=== PATIENT | male | born 1960 | race Caucasian/White ===

== ENCOUNTER → 2020-10-21 | Outpatient (CLI) | payer MEDICARE, OTHER | END | disposition home or self-care (01) | LOC: LABWHC1 17:00 | PROVIDERS: ATTEND Family Medicine | DX: Z03.818 Encounter for observation for suspected exposure to other biological agents ruled out (principal); Z20.822 Contact with and (suspected) exposure to COVID-19 | CPT/HCPCS: U0003; C9803 ==

== ENCOUNTER → 2021-01-01 | Outpatient (CLI) | payer OTHER, MEDICARE ==
[2021-01-01 14:34] LABS: HGB 13.7 gm/dL (13.0-17.5); MCH 31.4 pg (25.0-35.0); MCHC 34.2 g/dL (31.0-37.0); MCV 91.8 fL (80.0-100.0); Mean Platelet Volume 7.4; Platelet Count 230 k/uL (150-450); RBC 4.36 m/uL (4.30-5.90); RDW 13.1 % (11.5-15.5); WBC 8.4 k/uL (3.8-10.6)
[2021-01-01 14:42] LABS: Potassium 4.1 mmol/L (3.5-5.1)
== END | disposition home or self-care (01) ==
LOC: LABPAT 13:53
PROVIDERS: ATTEND Internal Medicine Interventional Cardiology
DX: Z01.812 Encounter for preprocedural laboratory examination (principal); I48.11 Longstanding persistent atrial fibrillation
CPT/HCPCS: 36415; 80051; 82565; 84520; 85027

== ENCOUNTER 2021-01-08 06:26 | Day surgery (SDC) | payer OTHER, MEDICARE ==
[2021-01-06 09:09] VITALS: BMI 43.5
[2021-01-08] MEDS ORDERED: SODIUM CHLORIDE 0.9% 1,000 ML IV SCH (06:49)
[2021-01-08 07:15] LABS: Glucose,Whole Blood 169 mg/dL (75-99)
[2021-01-08 07:18] VITALS: TEMP 99.5
[2021-01-08] MEDS ORDERED: PROPOFOL 10 MG/ML 20 ML VIAL IV ONE (07:22)
[2021-01-08 07:50] VITALS: RESP 16
[2021-01-08 09:08] VITALS: BP 119/62; PULSE 109
--- NOTE | 2021-01-08 22:18 | CE ---
CARDIAC ELECTROPHYSIOLOGY REPORT DATE OF SERVICE: 01/08/2021 PROCEDURE: Electrical cardioversion. INDICATION: Persistent atrial fibrillation in spite of pharmacological efforts. PROCEDURE NOTE: Under the influence of ultra short-acting intravenous anesthetic agent with the attendance of the anesthesiologist, patient was given a 250 joule shock with anterior and posterior patches. He remained in atrial fib and did not convert. Another shock of 300 joules was also given. The patient remained in atrial fib and therefore this is an unsuccessful electrical cardioversion. Results were discussed with the patient and . He will be discharged later on today on amiodarone and beta cyndi. I will see him in the office in about a week and we will consider other options including ablation. Discussed with the patient and . MMODL / IJN: [id number] /
== END 2021-01-08 09:05 | disposition home or self-care (01) ==
LOC: CATHCVL 06:26
PROVIDERS: ATTEND Internal Medicine Interventional Cardiology
DX: I48.19 Other persistent atrial fibrillation (principal); I10 Essential (primary) hypertension; E78.5 Hyperlipidemia, unspecified; E66.9 Obesity, unspecified; Z68.41 Body mass index [BMI] 40.0-44.9, adult; Z79.01 Long term (current) use of anticoagulants; Z79.84 Long term (current) use of oral hypoglycemic drugs; Z79.899 Other long term (current) drug therapy
CPT/HCPCS: 92960; J2704

== ENCOUNTER → 2021-01-22 | Outpatient (CLI) | payer OTHER, MEDICARE ==
[2021-01-22 14:43] LABS: HCT 43.6 % (39.6-50.0); HGB 14.2 g/dL (13.0-17.0); MCH 30.2 pg (27.0-32.0); MCHC 32.6 g/dL (32.0-37.0); MCV 92.8 fL (80.0-97.0); Mean Platelet Volume 10.2 fL (9.5-12.2); Platelet Count 278 X 10*3/uL (140-440); RDW 12.4 % (11.5-14.5); WBC 6.86 X 10*3/uL (4.50-10.00)
[2021-01-22 15:35] LABS: African American GFR (CKD) 69.7 (60.0-200.0); Anion Gap 10.2 mmol/L (4.00-12.00); BUN/Creat Ratio 23.08 Ratio (12.00-20.00); Calcium 9.8 mg/dL (8.7-10.3); Carbon Dioxide 28.8 mmol/L (21.6-31.8); Magnesium 2.2 mg/dL (1.5-2.4); Non-African American GFR(CKD) 60.1 (60.0-200.0); Potassium 4.1 mmol/L (3.5-5.5)
== END | disposition home or self-care (01) ==
LOC: LABWHC1 09:17
PROVIDERS: ATTEND Internal Medicine Interventional Cardiology
DX: I48.19 Other persistent atrial fibrillation (principal); I10 Essential (primary) hypertension
CPT/HCPCS: 36415; 80048; 83735; 85027

== ENCOUNTER → 2021-02-12 | Outpatient (CLI) | payer OTHER, MEDICARE ==
[2021-02-12 15:01] LABS: Potassium 4.4 mmol/L (3.5-5.1)
[2021-02-12 15:02] LABS: HCT 42.3 % (39.0-53.0); HGB 14.2 gm/dL (13.0-17.5); MCH 30.9 pg (25.0-35.0); MCHC 33.7 g/dL (31.0-37.0); MCV 91.8 fL (80.0-100.0); Mean Platelet Volume 7.6; Platelet Count 224 k/uL (150-450); RBC 4.61 m/uL (4.30-5.90); RDW 12.3 % (11.5-15.5); WBC 7.7 k/uL (3.8-10.6)
== END | disposition home or self-care (01) ==
LOC: LABPAT 14:12
PROVIDERS: ATTEND Internal Medicine Clinical Cardiac Electrophysiology
DX: Z01.812 Encounter for preprocedural laboratory examination (principal); I48.19 Other persistent atrial fibrillation
CPT/HCPCS: 36415; 80051; 82565; 84520; 85027

== ENCOUNTER 2021-02-24 05:57 | Day surgery (SDC) | payer OTHER, MEDICARE ==
[2021-02-19 15:57] VITALS: BMI 43.5
[~2021-02-24 05:57] MED LIST: SODIUM CHLORIDE 0.9% 1,000 ML IV SCH
[2021-02-24 06:36] LABS: Glucose,Whole Blood 127 mg/dL (75-99)
[2021-02-24] MEDS ORDERED: PROPOFOL 10 MG/ML 20 ML VIAL IV ONE (07:15)
[2021-02-24] MEDS ORDERED: PHENYLEPHRINE-0.9% NACL SYG 1,000 MCG/10 ML SYRINGE ONE (07:15)
[2021-02-24] MEDS ORDERED: MIDAZOLAM 2 MG/2 ML VIAL ONE (07:15)
[2021-02-24] MEDS ORDERED: fentaNYL (PF) 50 MCG/ML 2 ML AMP ONE (07:15)
[2021-02-24] MEDS ORDERED: PROTAMINE SULFATE 10 MG/ML 5 ML VIAL IV ONE (07:15)
[2021-02-24] MEDS ORDERED: HYDROmorphone (PF) 1 MG/ML ONE (07:15)
[2021-02-24] MEDS ORDERED: GLYCOPYRROLATE 0.2 MG/ML 2 ML VIAL ONE (07:15)
[2021-02-24] MEDS ORDERED: ROCURONIUM 10 MG/ML (5 ML VIAL) IV ONE (07:15)
[2021-02-24] MEDS ORDERED: HEPARIN SODIUM,PORCINE 10,000 UNIT/ML 1 ML VIAL ONE (07:15)
[2021-02-24] MEDS ORDERED: NEOSTIGMINE 1 MG/ML 10 ML VIAL ONE (07:15)
[2021-02-24] MEDS ORDERED: FUROSEMIDE 10 MG/ML 2 ML VIAL ONE (07:15)
[2021-02-24] MEDS ORDERED: LIDOCAINE 1% INJ 10MG/ML (20 ML MDV) ONE ×2 (07:15→07:57)
[2021-02-24] MEDS ORDERED: SUCCINYLCHOLINE CHLORIDE VIAL 200 MG/10 ML VIAL IV ONE (07:15)
[2021-02-24] MEDS ORDERED: MIDAZOLAM 2 MG/2 ML VIAL IVP ONE (07:18)
[2021-02-24] MEDS ORDERED: HEPARIN SODIUM (1,000 UNIT/ML) 1,000 UNIT in SODIUM CHLORIDE 0.9% 1,000 ML IRRIGATION ONE (07:33)
[2021-02-24] MEDS ORDERED: HEPARIN SOD,PORK IN 0.45% NACL 25,000 UNIT in 0.45% NACL 1 250ML.BAG IV ONE (07:34)
[2021-02-24] MEDS ORDERED: LIDOCAINE 1% INJ 10MG/ML (20 ML MDV) SQ ONE (08:02)
[2021-02-24] MEDS ORDERED: IOPAMIDOL-370 100ML BTL INJ ONE (09:37)
[2021-02-24] MEDS ORDERED: FUROSEMIDE 10 MG/ML 4 ML VIAL ONE (10:30)
[2021-02-24] MEDS ORDERED: SODIUM CHLORIDE 0.9% 500 ML 500 ML IV ONE ×2 (11:37)
[2021-02-24 12:24] LABS: Glucose,Whole Blood 152 mg/dL (75-99)
[2021-02-24] MEDS ORDERED: ACETAMINOPHEN TAB 325 MG TAB PO PRN (12:38)
[2021-02-24] MEDS: SODIUM CHLORIDE 0.9% 1,000 ML IV ONE ×4 (12:58→14:45)
[2021-02-24] MEDS ORDERED: ACETAMINOPHEN IV (For NPO) 1,000 MG in EMPTY BAG 1 BAG IVPB ONE (13:15)
--- NOTE | 2021-02-24 16:31 | P.HPCAR ---
History of Present Illness This is Dr. Brown dictating an H/P on this patient The patient was interviewed and examined IMPRESSION / ASSESSMENT: Persistent atrial fibrillation with RVR, septum and Failed electrical cardioversion and amiodarone Nonischemic cardio myopathy, ejection fraction 30% History of sleep apnea line history of alcohol use Hypertension Increased BMI Intolerance to amiodarone. TSH 7.3 PLAN: Proceed with AF ablation Reassessment of thyroid function after 6 weeks to see there is an improvement in his TSH since amiodarone has been discontinued HPI Patient complains of shortness of breath tiredness and fatigue. He is tachycardic at this time He denies any dizziness or chest discomfort his main complaint is shortness of breath and exertion ROS: No fever chills or rigors, no cough, phlegm or expectoration, no nausea, vomiting or diarrhea, no hematuria, dysuria, no musculoskeletal complaints, no strokes or seizures, no skin lesions. EXAMINATION: Pulse rate 120 have 130 beats a minute lying blood pressure 123/81 mmHg Heart sounds tachycardic. No murmurs or gallops Breath sounds are clear Abdomen soft Mild lower extremity edema REVIEW OF LABS, ECG & MEDICAL DATA TSH 7.3 Physical Exam Vitals: Vital Signs Temp Pulse Pulse Resp BP BP BP 02/24/21 16:20 64 16 02/24/21 15:58 64 16 02/24/21 15:20 62 18 02/24/21 15:05 66 16 02/24/21 14:50 65 16 02/24/21 14:35 62 16 02/24/21 14:20 62 16 02/24/21 14:05 61 16 02/24/21 13:50 61 18 02/24/21 13:35 60 16 02/24/21 13:20 61 16 02/24/21 13:05 59 L 16 74/46 02/24/21 12:50 58 L 16 76/48 02/24/21 12:35 59 L 16 77/48 02/24/21 12:20 59 L 16 75/47 02/24/21 12:05 58 L 18 89/53 02/24/21 11:51 58 L 16 92/53 02/24/21 11:36 98.0 F 54 L 16 126/88 02/24/21 06:49 99 F 145 H 18 123/81 BP Pulse Ox 02/24/21 16:20 94/61 97 02/24/21 15:58 99/66 97 02/24/21 15:20 96/56 97 02/24/21 15:05 96/68 99 02/24/21 14:50 92/59 98 02/24/21 14:35 95/58 100 02/24/21 14:20 90/56 98 02/24/21 14:05 87/53 96 02/24/21 13:50 85/51 95 02/24/21 13:35 84/50 95 02/24/21 13:20 95 02/24/21 13:05 93 L 02/24/21 12:50 93 L 02/24/21 12:35 95 02/24/21 12:20 95 02/24/21 12:05 98 02/24/21 11:51 97 02/24/21 11:36 94 L 02/24/21 06:49 98 Intake and Output 02/24/21 02/24/21 02/24/21 06:59 14:59 22:59 Intake Total 20 2835 Output Total 1700 200 Balance 20 1135 -200 Intake: IV 20 2835 Output: Urine 1700 200 Other: Weight 122.47 kg 122.47 kg Past Medical History Past Medical History: Atrial Fibrillation, CVA/TIA, Diabetes Mellitus, Hyperlipidemia, Hypertension, Myocardial Infarction ([place]), Sleep Apnea/CPAP/BIPAP Additional Past Medical History / Comment(s): See Dr Brown's H&P,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, "I HAVE A TINY HOLE IN MY HEART",uses cpap,glaucoma left eye Last Myocardial Infarction Date:: 2002 History of Any Multi-Drug Resistant Organisms: None Reported Past Surgical History: Orthopedic Surgery Additional Past Surgical History / Comment(s): LT HIP REPLACEMENT Past Anesthesia/Blood Transfusion Reactions: No Reported Reaction Smoking Status: Never smoker - Past Family History Mother Family Medical History: AFIB Father Family Medical History: Coronary Artery Disease (CAD) Physical Examination Vital Signs Temp Pulse Pulse Resp BP BP BP 02/24/21 16:20 64 16 02/24/21 15:58 64 16 02/24/21 15:20 62 18 02/24/21 15:05 66 16 02/24/21 14:50 65 16 02/24/21 14:35 62 16 02/24/21 14:20 62 16 02/24/21 14:05 61 16 02/24/21 13:50 61 18 02/24/21 13:35 60 16 02/24/21 13:20 61 16 02/24/21 13:05 59 L 16 74/46 02/24/21 12:50 58 L 16 76/48 02/24/21 12:35 59 L 16 77/48 02/24/21 12:20 59 L 16 75/47 02/24/21 12:05 58 L 18 89/53 02/24/21 11:51 58 L 16 92/53 02/24/21 11:36 98.0 F 54 L 16 126/88 02/24/21 06:49 99 F 145 H 18 123/81 BP Pulse Ox 02/24/21 16:20 94/61 97 02/24/21 15:58 99/66 97 02/24/21 15:20 96/56 97 02/24/21 15:05 96/68 99 02/24/21 14:50 92/59 98 02/24/21 14:35 95/58 100 02/24/21 14:20 90/56 98 02/24/21 14:05 87/53 96 02/24/21 13:50 85/51 95 02/24/21 13:35 84/50 95 02/24/21 13:20 95 02/24/21 13:05 93 L 02/24/21 12:50 93 L 02/24/21 12:35 95 02/24/21 12:20 95 02/24/21 12:05 98 02/24/21 11:51 97 02/24/21 11:36 94 L 02/24/21 06:49 98 Intake and Output 02/24/21 02/24/21 02/24/21 06:59 14:59 22:59 Intake Total 20 2835 Output Total 1700 200 Balance 20 1135 -200 Intake: IV 20 2835 Output: Urine 1700 200 Other: Weight 122.47 kg 122.47 kg Results Current Medications Generic Name Dose Route Start Last Admin Trade Name Freq PRN Reason Stop Dose Admin Acetaminophen 650 mg 02/24/21 12:38 Acetaminophen Tab 325 Mg Tab PO Q6HR PRN Mild Pain Apixaban 5 mg 02/24/21 21:00 Apixaban 5 Mg Tab PO BID ANDRY Protocol Atorvastatin Calcium 40 mg 02/25/21 09:00 Atorvastatin 40 Mg Tab PO DAILY [facility] Furosemide 40 mg 02/25/21 09:00 Furosemide 40 Mg Tab PO DAILY [facility] Lisinopril/HCTZ 1 each 02/25/21 09:00 Lisinopril-Hctz 20-25 Mg 1 Each Tab PO DAILY [facility] Metformin HCl 1,000 mg 02/26/21 21:00 Metformin 500 Mg Tab PO HS [facility] Metoprolol Succinate 150 mg 02/25/21 09:00 Metoprolol Succinate (Er) 50 Mg Tab.Er.24h PO DAILY [facility] Sodium Chloride 12 ml 02/24/21 21:00 Sodium Chloride 0.9% Flush 10 Ml Syringe IV Q12HR [facility] Timolol Maleate 1 drops 02/25/21 09:00 Timolol 0.5% Ophth Drops 5 Ml Btl LEFT EYE DAILY [facility] Intake and Output 02/24/21 02/24/21 02/24/21 06:59 14:59 22:59 Intake Total 20 2835 Output Total 1700 200 Balance 20 1135 -200 Intake: IV 20 2835 Output: Urine 1700 200 Other: Weight 122.47 kg 122.47 kg Patient Weight 02/25/21 06:59 Weight 122.47 kg
--- NOTE | 2021-02-24 16:35 | P.PRLE ---
RE: Ron Lloyd Dear Ron Deluca underwent A. fib ablation with pulmonary vein isolation and linear ablation of the left atrium He has persistent, very symptomatic atrial fibrillation with associated cardio myopathy and left ventricular ejection fraction of 30% Urine underwent successful pulmonary vein isolation and ablation of the left atrial septum He is intolerant of amiodarone and his TSH is 7.3 Amiodarone has been discontinued previously Patient be reevaluated in about 6 weeks to see if this is an effect of amiodarone He will continue ELIQUIS but is quite likely that he may need a second AF ablation with further linear ablation in the left atrium Hopefully his LV function will improve once he is in sinus rhythm I recommended complete abstinence from alcohol use Thank you for entrusting me with the care of the patient Warm regards Sincerely Oscar Brown
--- NOTE | 2021-02-24 16:40 | P.EPPROC ---
- EP Procedure Note Electrophysiology Procedure Note: PROCEDURE A. fib ablation with pulmonary vein isolation and ablation in the left atrial septum DIAGNOSIS Atrial fibrillation, symptomatic, refractory to therapy Persistent Nonischemic cardio myopathy RESULT No left atrial appendage mass seen on intracardiac echo, severe LV dysfunction on intracardiac echo Successful A. fib ablation/pulmonary vein isolation of all veins using cryo- ablation Complete entrance block in all 4 veins confirmed No evidence for phrenic nerve injury Linear ablation in the posterior septum of the left atrium along complex fractionated electrograms Esophageal deflection YES Electrical cardioversion with a synchronized shock across the chest YES PROCEDURE DETAILS Patient was brought to the EP lab in a fasting state. Written informed consent was obtained prior to the procedure. Procedure performed under general anesthesia After initial muscle relaxant use, muscle relaxants were not given thereafter in order to assess phrenic nerve during procedure. Patient prepped and draped as per protocol Full cryo-set up with standard preparation of the cryoablation tools done. Femoral Venous access obtained on the right and left groins Venous and arterial Sheaths placed. Diagnostic catheters for the high right atrium, phrenic nerve stimulation and pacing, His bundle, RV and coronary sinus placed Intracardiac echo catheter placed. Long sheath placed in the right atrium Left and right transseptal catheterization performed under intracardiac echo guidance. Intravenous heparin with aCT above 300 Later, catheter positioning and balloon positioning in the left atrium, under intracardiac echo guidance Diagnostic EP study with CS pacing and recording Transseptal catheterization performed RA pressure 21/11/12 LA pressure 39/8/22 Transseptal catheterization performed with standard sheath. The cryoablation sheath was then placed with an over the wire exchange without any acute complications. All 4 pulmonary veins were isolated in the following sequence: Left superior followed by left inferior followed by right superior followed by right inferior The cryo-ablation balloon was placed at the os of each vein 1.5 mL of IV dye was injected to confirm an occluded vein Goal during cryoablation was to achieve complete occlusion of the pulmonary ve in, achieve -30 degrees C at 30 seconds and achieve -40 degrees C at 60 seconds and a time to effect of less than 60-90 seconds, . If not the balloon was repositioned to obtain this result After completion of Cryoblation with durations from 180-240 seconds, entrance block was confirmed with the Attain circular catheter in a roving fashion around the antrum of the pulmonary veins Phrenic nerve pacing was performed from the SVC, right innominate vein area and diaphragm voltage was monitored. Diaphragmatic contractions were also monitored manually for strength of contraction. Parameter goals for each cryo freeze Complete occlusion of the appropriate vein -30 degrees C by 30 seconds -40 degrees C by 60 seconds Minimum between minus 40-55 degrees C Thaw time greater than 10 seconds Balloon visualized by intracardiac echo The esophagus was intubated. Esophageal Temperature monitoring with a CIRCA catheter formed. Esophageal deflection for hypothermia of the esophagus below 30 degrees C Left superior pulmonary vein Complete isolation, entrance block Left inferior pulmonary vein Complete isolation, entrance block Right superior pulmonary vein, during phrenic nerve pacing Complete isolation, entrance block Right inferior pulmonary vein, during phrenic nerve pacing Complete isolation, entrance block At the end of the procedure the Achieve catheter was once again used to check for entrance block Phrenic nerve stimulation was performed to confirm diaphragmatic stimulation the end of the procedure Cine fluoroscopy was performed at the very end of the procedure to confirm mo vement of both diaphragms with inspiration and expiration RF ablation catheter with appropriate sheaths was placed in the left atrium Scot mapping of the left atrium was performed Very fractionated electrograms are noted in the posterior septum after the roof And RF ablation was performed linear ablation along the posterior septum from the roof down to the right inferior pulmonary vein with mild organization of atrial fibrillation The patient's left pectoral groove is about 3.9 cm. The roof line was not made at this time Electrical cardioversion was performed to sinus rhythm At the end of the procedure the patient was extubated Heparin was reversed Venous sheaths were removed and hemostasis assured vascade venous Closure used PROCEDURES PERFORMED Diagnostic EP study CS pacing and recording Left and right transseptal catheterization 3D mapping) Intracardiac echocardiography Pulmonary vein isolation with transseptal and comprehensive EPS, [id number] Linear ablation, left atrium, +20220 Electrical cardioversion with a synchronized shock across the chest [id number]
[2021-02-24 17:09] LABS: Glucose,Whole Blood 167 mg/dL (75-99)
[2021-02-24 20:36] LABS: Glucose,Whole Blood 198 mg/dL (75-99)
[2021-02-24] MEDS: APIXABAN 5 MG TAB PO SCH (21:26)
[2021-02-25 02:48] VITALS: RESP 18
[2021-02-25 07:06] LABS: Glucose,Whole Blood 472 mg/dL (75-99)
[2021-02-25 07:07] LABS: Glucose,Whole Blood 156 mg/dL (75-99)
--- NOTE | 2021-02-25 07:59 | P.DS ---
Providers Attending physician: Oscar Brown Primary care physician: [facility] Course: Patient is resting comfortably in bed. Yesterday he had oozing from the right groin on 2 occasions. He has a very small hematoma in relation to the right groin. No hematoma in the left Right groin is mildly tender On examination his blood pressures 105/70 mmHg Yesterday he received 250 mL of IV fluids He had received IV Lasix through the procedure since he has severe LV dysfunction No JVD He looks comfortable no orthopnea no PND Heart sounds are regular Twelve-lead EKG was reviewed and shows sinus rhythm normal [place] narrow QRS and ST segment abnormalities with T-wave inversions in the precordial leads Impression Persistent symptomatic atrial fibrillation Associated severe cardio myopathy with congestive heart failure Status post pulmonary vein isolation and ablation in the left atrial septum Mild organization of atrial fibrillation Electrical cardioversion was performed at the end of the procedure Plan Hold Lasix metoprolol and lisinopril for 24-48 hours and resume thereafter Do not discontinue ELIQUIS. This was clearly explained to the patient and to his nurse today Follow-up with Dr. Plaza within one week Plan - Discharge Summary Discharge Rx Participant: No New Discharge Prescriptions: Continue Lisinopril-Hctz 20-25 mg [Zestoretic 20-25] 1 each PO DAILY allopurinoL [Zyloprim] 100 mg PO DAILY metFORMIN HCL [Glucophage] 1,000 mg PO HS Timolol 0.5% Ophth Soln [Timoptic 0.5% Ophth Soln] 1 drop LEFT EYE DAILY Atorvastatin [Lipitor] 40 mg PO DAILY Apixaban [Eliquis] 5 mg PO BID Furosemide [Lasix] 40 mg PO DAILY Metoprolol Succinate (ER) [Toprol XL] 150 mg PO DAILY Discharge Medication List Lisinopril-Hctz 20-25 mg [Zestoretic 20-25] 1 each PO DAILY 04/18/14 [History] allopurinoL [Zyloprim] 100 mg PO DAILY 04/18/14 [History] Atorvastatin [Lipitor] 40 mg PO DAILY 01/06/21 [History] Timolol 0.5% Ophth Soln [Timoptic 0.5% Ophth Soln] 1 drop LEFT EYE DAILY 01/06/21 [History] metFORMIN HCL [Glucophage] 1,000 mg PO HS 01/06/21 [History] Apixaban [Eliquis] 5 mg PO BID 02/19/21 [History] Furosemide [Lasix] 40 mg PO DAILY 02/19/21 [History] Metoprolol Succinate (ER) [Toprol XL] 150 mg PO DAILY 02/19/21 [History] Follow up Appointment(s)/Referral(s): Wilmer Plaza MD [STAFF PHYSICIAN] - 3 Days (Discharge home by 6 PM today if groin is healing well and he has no bleeding Use FemStop intermittently today) Activity/Diet/Wound Care/Special Instructions: Post EP study - Ablation instructions 1. Keep access sites dry for 2 days. 2. No heavy lifting or straining for 2 days. 3. Avoid bending the hips repeatedly for 2 days. 4. You may go up and down stairs slowly Call if the following is noted 1. Bleeding, increasing swelling or pain at the access sites. 2. Increasing chest discomfort, especially upon taking a deep breath. 3. Increasing shortness of breath, at rest or with exertion. 4. Undue cough / phlegm 5. Difficulty or pain while swallowing. 6. Pain or change in color in the extremities. 7. Fever, chills, rigors. 8. Increasing headache or neurologic symptoms. 9. Dizziness, fainting, palpitations Do not stop ELIQUIS Hold Lasix on Tuesday Hold metoprolol and lisinopril hydrochlorothiazide on Tuesday Resume all medications by Follow-up with Dr. Plaza in 4-5 days Discharge Disposition: HOME SELF-CARE
[2021-02-25] MEDS: APIXABAN 5 MG TAB PO SCH (08:15)
[2021-02-25] MEDS ORDERED: METOPROLOL SUCCINATE (ER) 50 MG TAB.ER.24H PO SCH (09:00)
[2021-02-25] MEDS ORDERED: TIMOLOL 0.5% OPHTH DROPS 5 ML BTL LEFT EYE SCH (09:00)
[2021-02-25] MEDS ORDERED: ATORVASTATIN 40 MG TAB PO SCH (09:00)
[2021-02-25] MEDS ORDERED: FUROSEMIDE 40 MG TAB PO SCH (09:00)
[2021-02-25] MEDS ORDERED: LISINOPRIL-HCTZ 20-25 MG 1 EACH TAB PO SCH (09:00)
[2021-02-25 11:51] LABS: Glucose,Whole Blood 155 mg/dL (75-99)
[2021-02-25 15:50] VITALS: BP 104/68; PULSE 75; TEMP 98.2
[2021-02-26] MEDS ORDERED: metFORMIN 500 MG TAB PO SCH (21:00)
== END 2021-02-25 17:00 | disposition home or self-care (01) ==
LOC: CATHEP 05:57 → 6NMEDSUR 11:15 → CATHEP 02-25 17:00
PROVIDERS: ATTEND Internal Medicine Clinical Cardiac Electrophysiology
DX: I48.19 Other persistent atrial fibrillation (principal); I42.8 Other cardiomyopathies; I10 Essential (primary) hypertension; Z79.899 Other long term (current) drug therapy; Z82.49 Family history of ischemic heart disease and other diseases of the circulatory system; Z79.01 Long term (current) use of anticoagulants; I25.2 Old myocardial infarction; E11.9 Type 2 diabetes mellitus without complications; E78.5 Hyperlipidemia, unspecified; I11.0 Hypertensive heart disease with heart failure; I50.9 Heart failure, unspecified; Z79.84 Long term (current) use of oral hypoglycemic drugs; Z86.73 Personal history of transient ischemic attack (TIA), and cerebral infarction without residual deficits
CPT/HCPCS: 93656; 92960; 93662; 93613; 93657; 84443; C1894 ×2; C1769 ×5; C1760; C1730 ×2; C1759; C1893; C1733; C1766; C1732; J2250; J0330; J2720; J1644 ×3; J1940; J2710; J2001; J3010; J1170; J0131; J2370; J2704; Q9967

== ENCOUNTER → 2022-02-16 | Outpatient (CLI) | payer OTHER, MEDICARE ==
--- NOTE | 2022-02-16 07:18 | MR ---
EXAMINATION TYPE: MR lumbar spine wo con DATE OF EXAM: 02/16/2022 COMPARISON: None HISTORY: Sciatica to the left CONTRAST: 0 mL intravenous Gadavist. TECHNIQUE: Multiplanar, multisequence images of the lumbar spine were acquired. FINDINGS: Cord terminates at the L1 level. There is mild wedge deformity without signal abnormality suggesting old compressions T11-T12. L5-S1: Degenerative disc changes are present. Vacuum disc phenomenon is present. There is a grade 1 s pondylolisthesis of L5 anteriorly on S1. Disc uncovering is anterior thecal sac contact. No AP spinal canal stenosis is present. Mild facet hypertrophy and ligamentum flavum laxity is present. Severe ri ght and left foraminal narrowing is present. This appears to be related to disc bulge and the foramen . L4-L5: No significant disc bulge or disc herniation. No spinal canal stenosis. No foraminal stenosi s. Facet hypertrophy with mild ligamentum flavum laxity is present. L3-L4: No significant disc bulge or disc herniation. No spinal canal stenosis. No foraminal stenosi s. Facets appear unremarkable.. L2-L3: No significant disc bulge or disc herniation. No spinal canal stenosis. No foraminal stenosi s. . L1-L2: No significant disc bulge or disc herniation. No spinal canal stenosis. No foraminal stenosi s. . T12-L1: Minimal right paracentral disc bulge may be present within the thecal sac contact. No spinal canal stenosis or neural foraminal stenosis is present. IMPRESSION: 1. Grade 1 spondylolisthesis with disc uncovering L5-S1. Vacuum disc phenomenon is present. Mild ante rior thecal sac contact is present. 2. Severe bilateral foraminal stenosis L5-S1 which appears related to disc bulging.
== END | disposition home or self-care (01) ==
LOC: RADMRIMAIN 05:52
PROVIDERS: ATTEND Family Medicine
DX: M43.16 Spondylolisthesis, lumbar region (principal); M48.061 Spinal stenosis, lumbar region without neurogenic claudication; M99.73 Connective tissue and disc stenosis of intervertebral foramina of lumbar region
CPT/HCPCS: 72148

== ENCOUNTER → 2024-09-20 | Day surgery (SDC) | payer OTHER, MEDICARE ==
[2024-09-18 14:03] VITALS: BMI 44.6
[~2024-09-20] MED LIST changes: +LIDOCAINE 1% INJ 10MG/ML (20 ML MDV) ONE; +PROPOFOL 10 MG/ML 20 ML VIAL IV ONE; -SODIUM CHLORIDE 0.9% 1,000 ML IV SCH
[2024-09-20 06:57] VITALS: TEMP 97.1
[2024-09-20] MEDS: SODIUM CHLORIDE 0.9% 500 ML 500 ML IV ONE (07:20)
[2024-09-20 07:25] LABS: Glucose,Whole Blood 106 mg/dL (70-110)
[2024-09-20] MEDS: BENZOCAINE SPRAY 1 EACH MM ONE (07:37)
--- NOTE | 2024-09-20 07:58 | P.TEE ---
Date of Procedure: 09/20/24 Description of Procedure(s): Procedure performed: 1. Transesophageal Echocardiogram. 2. Synchronized Cardioversion. Indications: Persistent symptomatic atrial flutter Consent: I have discussed the risks, benefits and alternative therapies for the above-mentioned procedure. The patient has indicated understanding and acceptance of the risks of the procedure. Signed consent was obtained and was placed in the paper chart. Moderate conscious sedation: Moderate conscious sedation was administered by an esthesia, see separate report. Procedural Steps: Timeout was performed in usual fashion. Patient's heart rate, blood pressure, oxygen saturation and ECG were monitored. After achieving appropriate moderate conscious sedation, JORGE JORGE probe was advanced without difficulty and without any immediate complications to the esophagus. JORGE study was performed with color flow doppler, pulsed wave doppler and continuous wave doppler. Agitated saline bubbles were injected to assess for any intra-atrial shunt. The probe was then removed. SYNCHRONIZED CARDIOVERSION After making sure that there is no evidence of intracardiac thrombus, pacer pads were placed and secured on patients chest and back. Synchronized cardioversion was perfromed using [150] J. [1] attempt. Sinus rhythm was confirmed with a 12 lead EKG. Patient tolerated the procedure well. Patient was transferred to the post procedure area in stable and satisfactory condition. Complications: none Blood loss: none FINDINGS Left Atrium: Moderate left atrial dilatation, no mass or thrombus. Left Atrial Appendage: No evidence of thrombus or mass seen in FRACISCO. Mildly dilated left atrial appendage. Inter atrial septum: Intact inter-atrial septum. No evidence of atrial septal defect or patent foramen ovale on color doppler. Left Ventricle: Normal global LV size and systolic function Right Atrium: Normal overall RA size Right Ventricle: Normal global RV size and systolic function Aortic Valve: Structurally normal Trileaflet, no significant calcification. No significant stenosis or regurgitation on color doppler assessment. Mitral Valve: Mild mitral regurgitation, likely functional from dilated atrium. Pulmonic Valve: Not well visualized. Tricuspid Valve: Mild tricuspid regurgitation Ascending aorta, Aortic root and Aortic arch: Mild intimal thickening. No evidence of large atheroma or bulky calcification Descending aorta: Mild intimal thickening. No evidence of large atheroma or bulky calcification Pericardial effusion CONCLUSION: Preserved global LV size and systolic function Moderate left atrial dilatation with no evidence of mass or thrombus. No thrombus or mass in left atrial appendage Mild functional mitral regurgitation Mild tricuspid regurgitation Successful synchronized cardioversion was attempted with 150 J with conversion of atrial flutter with a heart rate of 120 bpm to normal sinus rhythm. Recommendation Atrial flutter ablation Axel Meyers MD, RPVI, FACC Thank you for allowing [facility] to participate in this patient's care. Feel free to reach out in case of any followup questions.
[2024-09-20 07:59] LABS: African American GFR (CKD) >90 (>60 ml/min/1.73 sqM); Anion Gap 8 mmol/L; Blood Urea Nitrogen 25 mg/dL (9-20); Calcium 9.5 mg/dL (8.4-10.2); Carbon Dioxide 28 mmol/L (22-30); Chloride 105 mmol/L (98-107); Glucose 98 mg/dL (74-99); Non-African American GFR(CKD) >90 (>60 ml/min/1.73 sqM); Sodium 141 mmol/L (137-145)
[2024-09-20] MEDS: KETOROLAC 15 MG/ML 1 ML VIAL IVP STA (08:22)
[2024-09-20] MEDS: SODIUM CHLORIDE 0.9% 1,000 ML IV SCH (08:23)
[2024-09-20] MEDS: IV FLUID CONTINUATION 1,000 ML IV ONE (08:24)
[2024-09-20 09:24] LABS: Glucose,Whole Blood 103 mg/dL (70-110)
[2024-09-20 09:47] VITALS: RESP 18
[2024-09-20 10:00] VITALS: BP 108/69; PULSE 70
== END ==
LOC: OR 06:06
PROVIDERS: ATTEND Student in an Organized Health Care Education/Training Program
DX: I08.1 Rheumatic disorders of both mitral and tricuspid valves (principal); I48.19 Other persistent atrial fibrillation; I25.2 Old myocardial infarction; I11.0 Hypertensive heart disease with heart failure; I50.9 Heart failure, unspecified; I67.9 Cerebrovascular disease, unspecified; E78.00 Pure hypercholesterolemia, unspecified; G47.33 Obstructive sleep apnea (adult) (pediatric); E07.9 Disorder of thyroid, unspecified; E11.9 Type 2 diabetes mellitus without complications; Z82.49 Family history of ischemic heart disease and other diseases of the circulatory system; Z99.89 Dependence on other enabling machines and devices; Z79.84 Long term (current) use of oral hypoglycemic drugs; Z79.1 Long term (current) use of non-steroidal anti-inflammatories (NSAID); Z79.899 Other long term (current) drug therapy
CPT/HCPCS: 93312; 93320; 93325; 92960; 80048; J2003; J1885; J2704

== ENCOUNTER → 2025-01-07 | Outpatient (CLI) | payer OTHER, MEDICARE ==
[2025-01-07 16:29] LABS: Blood Urea Nitrogen 28.9 mg/dL (9.0-27.0); Carbon Dioxide 23.6 mmol/L (21.6-31.8); Chloride 108 mmol/L (96-109); Potassium 4.5 mmol/L (3.5-5.5); Sodium 143 mmol/L (135-145)
[2025-01-07 16:30] LABS: MCHC 32.5 g/dL (32.0-37.0); MCV 92.4 FL (80.0-97.0); Mean Platelet Volume 10.4 FL (9.5-12.2); NRBC Per 100 WBC 0 X 10*3/uL (0.00-0.01); Platelet Count 208 X 10*3/uL (140-440); RBC 4.33 X 10*6/uL (4.40-5.60); RDW 13.4 % (11.5-14.5); WBC 6.59 X 10*3/uL (4.50-10.00)
== END | disposition home or self-care (01) ==
LOC: LABPAT 11:03
PROVIDERS: ATTEND Internal Medicine Clinical Cardiac Electrophysiology
DX: Z01.812 Encounter for preprocedural laboratory examination (principal); I48.92 Unspecified atrial flutter
CPT/HCPCS: 80051; 82565; 84520; 85027

== ENCOUNTER 2025-01-14 09:06 | Day surgery (SDC) | payer OTHER, MEDICARE ==
[2025-01-10 15:37] VITALS: BMI 43.8
[2025-01-14] MEDS: SODIUM CHLORIDE 0.9% 1,000 ML IV SCH (09:25)
[2025-01-14 09:56] LABS: Glucose,Whole Blood 138 mg/dL (70-110)
[2025-01-14] MEDS ORDERED: APIXABAN 5 MG TAB PO SCH (10:15)
[2025-01-14] MEDS: APIXABAN 5 MG TAB PO SCH ×2 (10:30→20:47)
[2025-01-14] MEDS ORDERED: WATER FOR INJECTION, STERILE 10 ML VIAL IV ONE (11:51)
[2025-01-14] MEDS ORDERED: fentaNYL (PF) 50 MCG/ML 2 ML AMP ONE (11:51)
[2025-01-14] MEDS ORDERED: ROCURONIUM 10 MG/ML (5 ML VIAL) IV ONE (11:51)
[2025-01-14] MEDS: IV FLUID CONTINUATION 1,000 ML IV ONE (11:51)
[2025-01-14] MEDS ORDERED: ISOPROTERENOL 250 MCG/1.25 ML SYR IV ONE (11:51)
[2025-01-14] MEDS ORDERED: SUCCINYLCHOLINE CHLORIDE 200 MG/10 ML VIAL IV ONE (11:51)
[2025-01-14] MEDS ORDERED: LIDOCAINE 1% INJ 10MG/ML (20 ML MDV) ONE (11:51)
[2025-01-14] MEDS ORDERED: NEOSTIGMINE 1 MG/ML 10 ML VIAL ONE (11:51)
[2025-01-14] MEDS ORDERED: MIDAZOLAM 2 MG/2 ML VIAL ONE (11:51)
[2025-01-14] MEDS ORDERED: ePHEDrine 50 MG/ML 1 ML VIAL ONE (11:51)
[2025-01-14] MEDS ORDERED: HEPARIN SODIUM,PORCINE 5,000 UNIT/ML 1 ML VIAL ONE (11:51)
[2025-01-14] MEDS ORDERED: GLYCOPYRROLATE 0.2 MG/ML 2 ML VIAL ONE (11:51)
[2025-01-14] MEDS ORDERED: PROPOFOL 10 MG/ML 20 ML VIAL IV ONE (11:51)
[2025-01-14] MEDS: HEPARIN SOD,PORK IN 0.45% NACL 25,000 UNIT in 0.45% NACL 1 250ML.BAG IV ONE (12:30)
[2025-01-14] MEDS: LIDOCAINE 1% INJ 10MG/ML (20 ML MDV) SQ ONE (12:31)
[2025-01-14] MEDS: HEPARIN SODIUM (1,000 UNIT/ML) 1,000 UNIT in SODIUM CHLORIDE 0.9% 1,000 ML IRRIGATION ONE (13:45)
--- NOTE | 2025-01-14 14:00 | P.HPCAR ---
History of Present Illness This is Dr. Brown dictating an H/P on this patient The patient was interviewed and examined IMPRESSION / ASSESSMENT: Typical atrial flutter with RVR Past history of atrial fibrillation status post ablation in 2020 with PVI as well as linear ablation of the left atrium Morbid obesity Preserved LV systolic function PLAN: Eliquis should be taken 5 mg twice daily without interruption especially for the next 2 months Continue all other medications including diabetes medications Proceed with atrial flutter ablation if there is no left atrial appendage mass or thrombus or no mass/thrombus in the atria Start with intracardiac echo first HPI Patient presented with typical atrial flutter to the hospital previously. He underwent successful electrical cardioversion He has had a history of A-fib ablation in 2020 He has been running short on Eliquis and this may also be a cost issue Denies any fever chills cough. He is in sinus rhythm today ROS: No fever chills or rigors, no cough, phlegm or expectoration, no nausea, vomiting or diarrhea, no hematuria, dysuria, no musculoskeletal complaints, no strokes or seizures, no skin lesions. EXAMINATION: Pulse rate 61, blood pressure 137/65 mmHg afebrile Breath sounds are reduced bilaterally without no rhonchi no crackles Heart sounds are normal REVIEW OF LABS, ECG & MEDICAL DATA TSH normal at 2.3, elevated glucose 138 Physical Exam Vitals: Vital Signs Temp Pulse Resp BP BP Pulse Ox 01/14/25 09:42 98.8 F 61 16 137/65 149/83 97 Intake and Output 01/13/25 01/14/25 01/14/25 22:59 06:59 14:59 Intake Total 658 Balance 658 Intake: IV 658 Other: Weight 122.2 kg Past Medical History Past Medical History: Atrial Fibrillation, CVA/TIA, Diabetes Mellitus, Hyperlipidemia, Hypertension, Memory Impairment, Myocardial Infarction (PR), Sleep Apnea/CPAP/BIPAP, Thyroid Disorder Additional Past Medical History / Comment(s): SEE DR. BROWN'S H&P. 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 3 or 4 car dioversions over 5 years. ablation 02/24/21 for afib Past Anesthesia/Blood Transfusion Reactions: No Reported Reaction Past Psychological History: No Psychological Hx Reported Smoking Status: Never smoker Past Alcohol Use History: Occasional Past Drug Use History: None Reported - Past Family History Mother Family Medical History: AFIB Father Family Medical History: Coronary Artery Disease (CAD) Physical Examination Vital Signs Temp Pulse Resp BP BP Pulse Ox 01/14/25 09:42 98.8 F 61 16 137/65 149/83 97 Intake and Output 01/13/25 01/14/25 01/14/25 22:59 06:59 14:59 Intake Total 658 Balance 658 Intake: IV 658 Other: Weight 122.2 kg Results Current Medications Generic Name Dose Route Start Last Admin Trade Name Freq PRN Reason Stop Dose Admin Acetaminophen 650 mg 01/14/25 13:56 Acetaminophen Tab 325 Mg Tab PO 02/13/25 13:55 Q6HR PRN Mild Pain (Scale 1 to 3) Allopurinol 100 mg 01/15/25 09:00 Allopurinol 100 Mg Tab PO 02/14/25 08:59 DAILY ANDRY Apixaban 5 mg 01/14/25 10:15 01/14/25 10:30 Apixaban 5 Mg Tab PO 02/13/25 10:14 5 mg BID ANDRY Administration Protocol Apixaban 5 mg 01/14/25 21:00 Apixaban 5 Mg Tab PO 02/13/25 20:59 BID ANDRY Protocol Lisinopril/HCTZ 1 each 01/14/25 21:00 Lisinopril-Hctz 20-25 Mg 1 Each Tab PO 02/13/25 20:59 BID ANDRY Sodium Chloride 1,000 mls @ 20 mls/hr 01/14/25 05:58 01/14/25 09:25 Saline 0.9% IV 02/13/25 05:57 20 mls/hr .Q24H ANDRY Administration Levothyroxine Sodium 25 mcg 01/15/25 09:00 Levothyroxine 25 Mcg Tab PO 02/14/25 08:59 DAILY ANDRY Metoprolol Tartrate 25 mg 01/14/25 21:00 Metoprolol Tartrate 25 Mg Tab PO 02/13/25 20:59 BID ANDRY Non-Formulary Medication 10 mg 01/15/25 09:00 Glipizide PO 02/14/25 08:59 DAILY ANDRY Non-Formulary Medication 5 mg 01/14/25 21:00 Rosuvastatin Calcium [Crestor] PO 02/13/25 20:59 HS ANDRY Sodium Chloride 12 ml 01/14/25 13:56 Sodium Chloride 0.9% Flush 10 Ml Syringe IV 02/13/25 13:55 Q12HR PRN Line Flush Timolol Maleate 1 drops 01/15/25 09:00 Timolol 0.5% Ophth Drops 5 Ml Btl LEFT EYE 02/14/25 08:59 DAILY ANDRY Intake and Output 01/13/25 01/14/25 01/14/25 22:59 06:59 14:59 Intake Total 658 Balance 658 Intake: IV 658 Other: Weight 122.2 kg Patient Weight 01/15/25 06:59 Weight 122.2 kg
--- NOTE | 2025-01-14 14:04 | P.EPPROC ---
- EP Procedure Note Electrophysiology Procedure Note: Diagnosis Typical atrial flutter status post electrical cardioversion for symptomatic atrial flutter in the past History of A-fib ablation, successful status post ablation in 2020 Final diagnosis Typical atrial flutter Status post successful ablation with confirmed bidirectional block with isthmus conduction time of 171 ms in either direction Details Patient was brought to the EP lab in fasting state. Written informed consent was obtained prior to the procedure. He was in sinus rhythm at the start of the study. Next intracardiac echo was performed to rule out intracardiac mass or thrombus. Once this was done all of the diagnostic mapping and ablation catheter placed. IV heparin was also started Under general anesthesia, venous access was obtained in the right and left femoral veins. Sheaths were placed. First intracardiac echo catheter confirmed the absence of any intracardiac mass or thrombus on the right atria as well as in the left atria and left atrial appendage. LV function is normal no pericardial effusion baseline Diagnostic catheters were placed in the high right atrial area His bundle area coronary sinus. Intracardiac echo catheter was placed and a mapping ablation catheter with a long Visigo sheath was placed. Long isthmus with 2 pouches. RF ablation was performed from the tricuspid annulus to the eustachian ridge. A complete line of block was made Bidirectional block was proven with differential pacing Isthmus conduction time in either direction 170 ms Isopril infused. No other SVT was induced with pacing All sheaths were removed. Venous hemostasis showed with closure devices heparin discontinued Plan uninterrupted Eliquis, 5 mg twice daily
[2025-01-14 15:45] LABS: Glucose,Whole Blood 112 mg/dL (70-110)
[2025-01-14] MEDS: ACETAMINOPHEN TAB 325 MG TAB PO PRN (16:16)
[2025-01-14] MEDS: IBUPROFEN 600 MG TAB PO SCH (17:45)
[2025-01-14] MEDS: ATORVASTATIN 10 MG TAB PO SCH (20:47)
[2025-01-14] MEDS: LISINOPRIL-HCTZ 20-25 MG 1 EACH TAB PO SCH (20:48)
[2025-01-14] MEDS: METOPROLOL TARTRATE 25 MG TAB PO SCH (20:48)
[2025-01-15] MEDS: LEVOTHYROXINE 25 MCG TAB PO SCH (05:27)
[2025-01-15 07:42] VITALS: BP 131/72; PULSE 65; RESP 17; TEMP 98.3
[2025-01-15] MEDS: glipiZIDE 5 MG TAB PO SCH (08:41)
[2025-01-15] MEDS: allopurinoL 100 MG TAB PO SCH (08:42)
[2025-01-15] MEDS ORDERED: TIMOLOL 0.5% OPHTH DROPS 5 ML BTL LEFT EYE SCH (09:00)
--- NOTE | 2025-01-15 10:52 | P.DS ---
Providers Attending physician: Oscar Brown Primary care physician: Flowers Hospital Course: Patient is doing well. No chest discomfort dizziness lightheadedness or palpitations Blood pressures 124/72 mmHg Heart sounds are normal Groins have healed well No hematoma no swelling Impression Atypical atrial flutter Status post successful ablation with confirmed bidirectional block with differential pacing Plan continue anticoagulation uninterrupted and follow-up with the office in 1 week Plan - Discharge Summary Discharge Rx Participant: No New Discharge Prescriptions: Continue RX: Lisinopril-Hctz 20-25 mg [Zestoretic 20-25] 1 each PO BID RX: allopurinoL [Zyloprim] 100 mg PO DAILY RX: Rosuvastatin Calcium [Crestor] 5 mg PO HS RX: Metoprolol Tartrate 25 mg PO BID #180 tab RX: Ibuprofen 800 mg PO DIRECTED PRN PRN Reason: Pain RX: Timolol 0.5% Ophth Soln [Timoptic 0.5% Ophth Soln] 1 drop LEFT EYE DAILY RX: Apixaban [Eliquis] 5 mg PO BID RX: Levothyroxine Sodium [Synthroid] 25 mcg PO DAILY RX: glipiZIDE [Glucotrol] 10 mg PO DAILY Discharge Medication List RX: Lisinopril-Hctz 20-25 mg [Zestoretic 20-25] 1 each PO BID 04/18/14 [History] RX: allopurinoL [Zyloprim] 100 mg PO DAILY 04/18/14 [History] RX: Timolol 0.5% Ophth Soln [Timoptic 0.5% Ophth Soln] 1 drop LEFT EYE DAILY 01/06/21 [History] RX: Apixaban [Eliquis] 5 mg PO BID 02/19/21 [History] RX: Levothyroxine Sodium [Synthroid] 25 mcg PO DAILY 09/18/24 [History] RX: Rosuvastatin Calcium [Crestor] 5 mg PO HS 09/18/24 [History] RX: glipiZIDE [Glucotrol] 10 mg PO DAILY 09/18/24 [History] RX: Metoprolol Tartrate 25 mg PO BID #180 tab 09/20/24 [Rx] RX: Ibuprofen 800 mg PO DIRECTED PRN 01/10/25 [History] Follow up Appointment(s)/Referral(s): Oscar Brown MD [STAFF PHYSICIAN] - 1 Week Activity/Diet/Wound Care/Special Instructions: Post EP study - Ablation instructions 1. Keep access sites dry for 2 days. 2. No heavy lifting or straining for 2 days. 3. Avoid bending the hips repeatedly for 2 days. 4. You may go up and down stairs slowly 5. If you have had an ablation for atrial fibrillation or atrial flutter and are on a blood thinner, do not stop the blood thinner even temporarily for 3 months post ablation Call if the following is noted 1. Bleeding, increasing swelling or pain at the access sites. 2. Increasing chest discomfort, especially upon taking a deep breath. 3. Increasing shortness of breath, at rest or with exertion. 4. Undue cough / phlegm 5. Difficulty or pain while swallowing. 6. Pain or change in color in the extremities. 7. Fever, chills, rigors. 8. Increasing headache or neurologic symptoms. 9. Dizziness, fainting, palpitations For patients who have undergone an A-fib ablation /atrial flutter ablation Strict instruction; do NOT stop anticoagulation (Eliquis/Xarelto/Pradaxa) for the next 2 months temporarily, for any elective, nonurgent surgery. This in creases the risk of stroke, post A-fib ablation The Eliquis dose is 5 mg twice daily. Patient should not cut down the dose to once daily as this would increase the risk of stroke Uninterrupted Eliquis 5 mg twice daily for the next 2 months post ablation, continue long-term anticoagulation Discharge Disposition: HOME SELF-CARE
== END 2025-01-15 12:17 | disposition home or self-care (01) ==
LOC: CATHEP 09:06 → 6NMEDSUR 13:54 → CATHEP 01-15 12:17
PROVIDERS: ATTEND Internal Medicine Clinical Cardiac Electrophysiology
DX: I48.3 Typical atrial flutter (principal); I25.2 Old myocardial infarction; I10 Essential (primary) hypertension; E78.5 Hyperlipidemia, unspecified; E11.9 Type 2 diabetes mellitus without complications; G47.33 Obstructive sleep apnea (adult) (pediatric); E66.01 Morbid (severe) obesity due to excess calories; I48.91 Unspecified atrial fibrillation; E07.9 Disorder of thyroid, unspecified; Z79.01 Long term (current) use of anticoagulants; Z79.84 Long term (current) use of oral hypoglycemic drugs; Z79.899 Other long term (current) drug therapy; Z86.73 Personal history of transient ischemic attack (TIA), and cerebral infarction without residual deficits; Z99.89 Dependence on other enabling machines and devices
CPT/HCPCS: 93623; 93653; 86900; 86901; 84443; 86850; C1759; C1894; C1769; C1766; C1760 ×2; C1730; C1732; J2250; J0330; J1644 ×3; J2710; J2003; J3010; J2704; J1596